=== PATIENT | female | born 1945 | race Caucasian/White ===

== ENCOUNTER → 2016-05-02 | Outpatient (CLI) | payer MEDICARE ==
[2016-05-02 07:25] LABS: Calcium 9.7 mg/dL (8.4-10.2); Total Bilirubin 0.6 mg/dL (0.2-1.3)
[2016-05-02 07:30] LABS: CH 29.4; CHCM 31.5; HCT 44.2 % (34.0-46.0); HDW 2.41; HGB 13.8 gm/dL (11.4-16.0); MCH 29.3 pg (25.0-35.0); MCHC 31.3 g/dL (31.0-37.0); MCV 93.5 fL (80.0-100.0); Mean Platelet Volume 7.1; RBC 4.72 m/uL (3.80-5.40); RDW 14.6 % (11.5-15.5); WBC 6.6 k/uL (3.8-10.6)
[2016-05-02 08:30] LABS: Hemoglobin A1C 6.7 % (4.2-6.1)
--- NOTE | 2016-05-02 08:42 | US ---
EXAMINATION TYPE: US abdomen complete DATE OF EXAM: 05/02/2016 7:32 AM COMPARISON: CT abdomen and pelvis April 02, 2015 CLINICAL HISTORY: R10.12 LUQ Pain, R10.[address]: small bowel obstruction per report in Mar ruary; Spina Bifida; on pain meds; Gallbladder removed; diabetic EXAM MEASUREMENTS: Liver Length: 15.9cm Gallbladder Wall: surgically removed CBD: 0.5 cm Spleen: 10.8 cm Right Kidney: 9.3 x 4.6 x 4.6 cm Left Kidney: 9.2 x 5.1 x 4.9 cm TECHNOLOGIST IMPRESSION: Exam is technically limited due to large body habitus Pancreas: hyperechoic Liver: fatty Gallbladder: surgically absent CBD: wnl Spleen: wnl Right Kidney: wnl Left Kidney: wnl Upper IVC: wnl Abd Aorta: wnl At area of pain at LUQ and left lateral abdomen: bowel is noted. Exam is noted suboptimal secondary to patient's large body habitus. Visualized pancreas shows no worr isome mass or ductal dilatation. Visualized aorta shows no aneurysmal change. IVC is seen near hepati c dome. Liver is heterogeneously hyperechoic in appearance consistent with diffuse fatty infiltration . No intrahepatic ductal dilatation is seen. Gallbladder is surgically absent. No hydronephrosis or c oncerning solid or cystic renal mass is seen in either kidney. Spleen is normal in size. Scanning of left upper quadrant shows pulsating bowel, no worrisome mass or fluid collection is seen on last few images saved. IMPRESSION: No significant new finding is seen to account for patient's symptoms.
== END | disposition home or self-care (01) ==
LOC: RADUSWWP 06:39
PROVIDERS: ATTEND Internal Medicine
DX: R10.12 Left upper quadrant pain (principal); R10.32 Left lower quadrant pain; E11.9 Type 2 diabetes mellitus without complications; E03.9 Hypothyroidism, unspecified; E78.2 Mixed hyperlipidemia
CPT/HCPCS: 76700; 80053; 80061; 83036; 84439; 84443; 85027

== ENCOUNTER → 2017-08-21 | Outpatient (CLI) | payer MEDICARE ==
[2017-08-20 11:00] VITALS: BMI 44.2
[2017-08-21 11:49] VITALS: BP 101/59; PULSE 100; RESP 16
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
== END | disposition home or self-care (01) ==
LOC: PNWHC3 11:05
PROVIDERS: ATTEND Specialist
DX: M43.16 Spondylolisthesis, lumbar region (principal); M51.36 Other intervertebral disc degeneration, lumbar region; M47.816 Spondylosis without myelopathy or radiculopathy, lumbar region; M46.96 Unspecified inflammatory spondylopathy, lumbar region; M53.3 Sacrococcygeal disorders, not elsewhere classified; Q05.7 Lumbar spina bifida without hydrocephalus; R26.2 Difficulty in walking, not elsewhere classified; J45.909 Unspecified asthma, uncomplicated; E11.9 Type 2 diabetes mellitus without complications; I82.409 Acute embolism and thrombosis of unspecified deep veins of unspecified lower extremity; K21.9 Gastro-esophageal reflux disease without esophagitis; M79.9 Soft tissue disorder, unspecified; R29.90 Unspecified symptoms and signs involving the nervous system; E07.9 Disorder of thyroid, unspecified; M19.90 Unspecified osteoarthritis, unspecified site; N28.9 Disorder of kidney and ureter, unspecified; Z91.013 Allergy to seafood; Z88.2 Allergy status to sulfonamides; Z91.041 Radiographic dye allergy status; Z91.040 Latex allergy status; Z79.891 Long term (current) use of opiate analgesic; Z79.899 Other long term (current) drug therapy; Z91.048 Other nonmedicinal substance allergy status; Z88.5 Allergy status to narcotic agent
CPT/HCPCS: 99211

== ENCOUNTER → 2017-09-11 | Outpatient (CLI) | payer MEDICARE ==
--- NOTE | 2017-09-15 08:58 | MM ---
Reason for exam: screening (asymptomatic). Last mammogram was performed 2 years and 8 months ago. History: Patient is postmenopausal and has history of endometrial cancer at age 26. Family history of breast cancer in grandmother at age 55, breast cancer in maternal aunt, and premenopausal breast cancer in maternal aunt at age 45. Benign excisional biopsy of the left breast, 1995. Took hormonal contraceptives for 12 years. Took estrogen for 27 years. Physical Findings: A clinical breast exam by your physician is recommended on an annual basis and results should be correlated with mammographic findings. MG 3D Screening Mammo W/Cad Bilateral CC and MLO view(s) were taken. Technologist: RT Nick (R)(M) Prior study comparison: January 14, 2015, bilateral MG screening mammo w CAD. December 15, 2013, bilateral MG screening mammo w CAD. Finding: There is a typically benign 3 mm equal density (isodense), circumscribed round mass in the upper quadrant, middle position of the right breast. New finding since January 14, 2015 and December 15, 2013. ASSESSMENT: Incomplete: need additional imaging evaluation, BI-RAD 0 RECOMMENDATION: Ultrasound of the right breast. (11-1 o'clock) [facility] will attempt to contact patient to return for ultrasound.
== END | disposition home or self-care (01) ==
LOC: RADMAMWWP 09:34
PROVIDERS: ATTEND Internal Medicine
DX: Z12.31 Encounter for screening mammogram for malignant neoplasm of breast (principal)
CPT/HCPCS: 77063; 77067

== ENCOUNTER → 2017-09-24 | Outpatient (CLI) | payer MEDICARE ==
--- NOTE | 2017-09-25 07:00 | USB ---
Reason for exam: additional evaluation requested from abnormal screening. History: Patient is postmenopausal and has history of endometrial cancer at age 26. Family history of breast cancer in grandmother at age 55, breast cancer in maternal aunt, and premenopausal breast cancer in maternal aunt at age 45. Benign excisional biopsy of the left breast, 1995. Took hormonal contraceptives for 12 years. Took estrogen for 27 years. Physical Findings: Nurse did not find any significant physical abnormalities on exam. US Breast Workup Limited RT Right limited breast ultrasound including focal area of concern, retroareolar and axilla demonstrates a 0.2 x 0.2 x 0.2 cm to small to characterize lesion at 11 o'clock. These results were verbally communicated with the patient and result sheet given to the patient on 09/24/17. ASSESSMENT: Benign, BI-RAD 2 RECOMMENDATION: Return to routine screening mammogram schedule for both breasts.
== END | disposition home or self-care (01) ==
LOC: RADUSWWP 15:29
PROVIDERS: ATTEND Internal Medicine
DX: R92.8 Other abnormal and inconclusive findings on diagnostic imaging of breast (principal)

== ENCOUNTER → 2018-08-26 | Outpatient (CLI) | payer MEDICARE | END | disposition home or self-care (01) | LOC: LABWHC1 10:24 | PROVIDERS: ATTEND Physical Medicine & Rehabilitation | DX: Z51.81 Encounter for therapeutic drug level monitoring (principal); Z79.891 Long term (current) use of opiate analgesic | CPT/HCPCS: 36415; 93005 ==

== ENCOUNTER 2018-09-11 16:37 | Emergency (ER) | payer MEDICARE ==
[2018-09-11 16:55] VITALS: BP 117/84; PULSE 98; RESP 18; TEMP 97.8
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
== END 2018-09-11 18:13 | disposition home or self-care (01) ==
LOC: EC 16:37
DX: S30.0XXA Contusion of lower back and pelvis, initial encounter (principal); Q05.9 Spina bifida, unspecified; J45.909 Unspecified asthma, uncomplicated; E07.9 Disorder of thyroid, unspecified; M10.9 Gout, unspecified; Z85.43 Personal history of malignant neoplasm of ovary; Z79.890 Hormone replacement therapy; Z79.899 Other long term (current) drug therapy; Z91.041 Radiographic dye allergy status; Z91.040 Latex allergy status; Z91.013 Allergy to seafood; Z88.2 Allergy status to sulfonamides; Z88.5 Allergy status to narcotic agent; Z53.29 Procedure and treatment not carried out because of patient's decision for other reasons
CPT/HCPCS: 99283

== ENCOUNTER → 2018-09-11 | Outpatient (CLI) | payer MEDICARE ==
--- NOTE | 2018-09-11 15:12 | MR ---
EXAMINATION TYPE: MR lumbar spine wo con DATE OF EXAM: 09/11/2018 COMPARISON: None HISTORY: Low back pain / Spondylolisthesis TECHNIQUE: Multiplanar, multisequence images of the lumbar spine were acquired. FINDINGS: There is a T2 hyperintense and T1 hypointense epidural fluid collection measuring 15.5 cm i n length extending from the L1-L2 intervertebral disc space to the level of S2. No significant mass e ffect on the distal nerve roots is seen at this time. There is also epidural lipomatosis seen posteri or to this fluid collection. There is also loculation of this fluid collection distally with a second component incompletely measurable given ofhea-mi-iaid measuring at least 8.6 cm. There are probable left sacral nerve root/Tarlov cysts that are seen only on the sagittal images. T1/T2 hyperintense lef t lateral S1 vertebral body hemangioma is seen with similar vertebral body hemangioma of the inferior endplate of L3. There is grade 1 anterolisthesis of L5 on S1 secondary to a right pars interarticularis defect. There is disc uncovering as a result. Multilevel disc desiccation is seen. Vertebral body heights of the lumbar spine are maintained. Multi level anterior osteophytes are present. L1-L2: There is desiccation. No focal herniation. No spinal canal stenosis nor neural foraminal narro wing. L2-L3: There is disc desiccation without focal herniation. No spinal canal stenosis nor neural forami nal narrowing. L3-L4: There is a broad-based disc bulge without spinal canal stenosis nor neural foraminal narrowing . The disc bulges slightly left eccentric. L4-L5: There is a very small central disc herniation superimposed upon a broad-based disc bulge. Face t arthropathy is also seen. There is resultant minimal left neural foraminal narrowing. Spinal canal and right neural foramen are patent. L5-S1: There is a broad-based disc bulge and disc uncovering as well as facet arthropathy resulting i n moderate to severe bilateral neural foraminal narrowing as a disc bulge contacts the exiting L5 ner ve roots. No spinal canal stenosis. Muscular atrophy is seen of the low lumbosacral spine. IMPRESSION: 1. Elongated multiloculated epidural fluid collection seen posteriorly has a component that extends f rom L1-L2 to S2 and another component that is incompletely visualized extending beyond the caudal fie ld-of-view. Seroma or chronic epidural hematoma or possibilities. Correlate with prior surgical inter vention, trauma or pain management procedures. Findings communicated with Gladys, office staff of Dr. Conde as he was unavailable. Finding was communicated at 1509 on September 11, [address] David with r ecommendation to proceed with the ER for neurologic assessment as patient could not be seen in the or dering physician's office until Friday. 2. Grade 1 anterolisthesis of L5 on S1 with disc uncovering secondary to a unilateral pars interartic ularis defect. 3. Very small central disc herniation at L4-L5 without spinal canal stenosis. 4. Degenerative disc disease most focal at L4-L5 and L5-S1 with bilateral moderate to severe neural f oraminal narrowing at L5-S1 and abutment of the exiting L5 nerve roots bilaterally by the disc bulge.
== END ==
LOC: RADMRIMAIN 12:34
PROVIDERS: ATTEND Physical Medicine & Rehabilitation
DX: M48.07 Spinal stenosis, lumbosacral region (principal); M43.17 Spondylolisthesis, lumbosacral region; M51.37 Other intervertebral disc degeneration, lumbosacral region; M51.36 Other intervertebral disc degeneration, lumbar region; M51.27 Other intervertebral disc displacement, lumbosacral region
CPT/HCPCS: 72148

== ENCOUNTER → 2019-04-15 | Outpatient (CLI) | payer MEDICARE ==
[2019-04-16 13:48] LABS: Serum Amphetamine Negative; Serum Barbiturates Negative; Serum Benzodiazepine Negative; Serum Cocaine Negative; Serum Methadone Negative; Serum Opiates Negative; Serum Phencyclidine Negative; Serum Propoxyphene Negative; Serum THC (Cannabis) Negative
== END | disposition home or self-care (01) ==
LOC: LABWHC1 13:49
PROVIDERS: ATTEND Obstetrics & Gynecology Reproductive Endocrinology
DX: M43.16 Spondylolisthesis, lumbar region (principal); M47.26 Other spondylosis with radiculopathy, lumbar region; M51.16 Intervertebral disc disorders with radiculopathy, lumbar region; M85.68 Other cyst of bone, other site; G96.19 Other disorders of meninges, not elsewhere classified; M25.561 Pain in right knee; M25.562 Pain in left knee; M17.0 Bilateral primary osteoarthritis of knee
CPT/HCPCS: 36415; 80307

== ENCOUNTER → 2022-09-19 | Outpatient (CLI) | payer MEDICARE ==
--- NOTE | 2022-09-19 14:35 | P.PAINPG ---
PQRS Measure Charge Sheet Comment: HISTORY OF PRESENT ILLNESS: 77 yr old female as a referral from Dr Avilez presents today w severe and chronic LBP secondary to DDD, spondylosis and facet arthropathy without myelopathy for evaluation. Pt states pain level is provoked at 9/10 in intensity, constant, localized in the lower lumbar spine, sharp in character w shooting pain towards the RLE. Pain is provoked by over activity. Pain is alleviated by use of a wheelchair for ambulatory assistance, PT in 2020, physician guided home stretches daily since 2020, ice, medications ([place], Neurontin), topicals, repositioning and rest. Oswestry axial pain score at . PMH: OA, Asthma, Ovarian CA, DM II, DVT, GERD, OA, CKD Stage III, Hypothyroid Disorder, Gout, PSH: Spinal Bifida, Appendectomy, Section, Cholecystectomy, Hysterectomy, R Wrist ORIF, Tonsillectomy, Sinus Surgery (2014), EGDs, Colonoscopies SH: Negative x3 FH: Mo- Dementia. DM II All: See list Meds: See list REVIEW OF ORGAN SYSTEMS: CONSTITUTIONAL: No fevers or chills. No recent weight loss. NEUROLOGICAL: + numbness and tingling along the distal extremities. No seizure disorders or headaches. MUSCULOSKELETAL: + pain PSYCHIATRIC: Denies current depression or suicidal thoughts. Physical Examinations : Constitutional : Cooperative , not in acute distress . Neurologic : Cranial nerve II to XII intact. No focal neurological deficits. Psychiatric : alert & oriented x 3. Matching mood & appropriate affect. Judgment & insight intact. Musculoskeletal : Cervical Spine Motor strength in the deltoid and biceps: Normal right side. Normal Left side Motor strength biceps and the wrist extensors: Normal right side . Normal left side Motor strength in the triceps muscle: Normal right side. Normal left side Deep tendon reflexes: Normal at the biceps. Normal at Brachioradialis. Normal at triceps Vertebral body tenderness to deep palpation over Cervical facet loading test: positive bilaterally Spurling test: positive bilaterally Neck distraction test: positive bilaterally Konrad sign: positive bilaterally Lumbar spine Motor strength lower extremities ,thigh and legs 5/5 Right side , 5/5 Left side Deep tendon reflexes : Normal Knee Jerk. Normal Ankle Jerk Vertebral body tenderness over Summers Test positive Lumbar facet Loading Test: positive Right / positive Left Range of motion of the lumbar spine Flexion 30 degrees, extension 10 degrees Straight Leg Raise test: Left/ Right positive at degree Jb test: positive right / positive left. Severe tenderness over the Sacroiliac joint on the Right / Left sides Gaenslen test: positive bilaterally Seated flexion test: positive bilaterally. Sacral spine : Severe tenderness over the Sacroiliac joint: right side / left side Range of motion: Flexion of the lumbar spine <60 degrees Range of motion: Extension of the lumbar spine <20 degrees Gaenslen's Test positive Omar's Test positive Jb test: positive right side / left side Thigh Thrust Test Sacral Thrust Test Imaging: Awaiting reports from [facility] Imaging Assessment/ Plan : Lumbar DDD Recommendation of PT x 6 wks re: M51.36. All questions answered. I have spent greater than 30 minutes on patient care today. Dr Franklin was available by phone for the evaluation of this patient. The time was used to review the medical records including relevant urine studies and Prescription history (MAPs), review of the available imaging, evaluation and examination of the patient, coordination of care with the medical staff and if applicable referring physicians, as well as creation of the medical record PQRS Narrative: Smoking Status Never smoker Hx Alcohol Use (MH) No Home Medications: Ambulatory Orders Albuterol Inhaler [Ventolin Inhaler] 1 - 2 puff INHALATION RT-Q6H PRN 06/17/14 Cyclobenzaprine [Flexeril] 10 mg PO TID PRN 06/17/14 Enalapril [Vasotec] 2.5 mg PO DAILY 06/17/14 Gabapentin 600 mg PO DAILY 06/17/14 Levothyroxine Sodium [Levoxyl] 200 mcg PO QAM 06/17/14 Montelukast [Singulair] 10 mg PO HS PRN 06/17/14 Potassium Chloride [Klor-Con 20] 20 meq PO Q2D 06/17/14 allopurinoL [Zyloprim] 300 mg PO DAILY 06/17/14 Budesonide [Pulmicort] 0.5 mg INHALATION RT-BID PRN 04/02/15 Furosemide [Lasix] 20 mg PO Q2D 04/02/15 HYDROcodone/APAP 10-325MG [[place] 10-325] 1 tab PO Q12H PRN 08/20/17 Cholecalciferol (Vitamin D3) [Vitamin D3] 50,000 unit PO WEEKLY 08/21/17 Devils Claw 1 tab PO DAILY 08/21/17 Frankincense 1 tab PO DAILY 08/21/17 Magnesium 400 mg PO DAILY 08/21/17 Radiant Massage 08/21/17 Turmeric Root Extract [Turmeric] 500 mg PO DAILY 08/21/17 Controlled Substance Measures - Controlled Substance Measures Is patient prescribed a controlled substance at discharge?: No
[2022-09-19 14:48] VITALS: BP 144/79; PULSE 81; RESP 16
== END ==
LOC: PNWHC3 13:27
PROVIDERS: ATTEND Specialist
DX: M51.36 Other intervertebral disc degeneration, lumbar region (principal); M47.816 Spondylosis without myelopathy or radiculopathy, lumbar region; M19.90 Unspecified osteoarthritis, unspecified site; J45.909 Unspecified asthma, uncomplicated; E11.22 Type 2 diabetes mellitus with diabetic chronic kidney disease; N18.30 Chronic kidney disease, stage 3 unspecified; K21.9 Gastro-esophageal reflux disease without esophagitis; M10.9 Gout, unspecified; Z85.43 Personal history of malignant neoplasm of ovary; Z86.718 Personal history of other venous thrombosis and embolism; Z79.51 Long term (current) use of inhaled steroids; Z79.890 Hormone replacement therapy; Z88.8 Allergy status to other drugs, medicaments and biological substances; Z91.041 Radiographic dye allergy status; Z88.2 Allergy status to sulfonamides; Z91.040 Latex allergy status; Z88.5 Allergy status to narcotic agent; Z91.030 Bee allergy status; Z91.010 Allergy to peanuts; Z88.7 Allergy status to serum and vaccine; Z88.6 Allergy status to analgesic agent
CPT/HCPCS: 99211

== ENCOUNTER → 2022-10-31 | Outpatient (CLI) | payer MEDICARE ==
--- NOTE | 2022-10-31 13:56 | P.PAINPG ---
PQRS Measure Charge Sheet Comment: HISTORY OF PRESENT ILLNESS: 77 yr old wheelchair bound female presents today w severe and chronic LBP secondary to DDD, spondylosis and facet arthropathy without myelopathy for evaluation. Pt states pain level is provoked at 9/10 in intensity, constant, localized in the lower lumbar spine, sharp in character w shooting pain towards the RLE. Pain is provoked by over activity. Pain is alleviated by use of a wheelchair for ambulatory assistance, visiting home PT/ OT from Sep 2022 til present, physician guided home stretches daily since 2020, ice, medications, topicals, repositioning and rest. Oswestry axial pain score at 28. Interventional procedures include DENIES Medications include [place], Neurontin REVIEW OF ORGAN SYSTEMS: CONSTITUTIONAL: No fevers or chills. No recent weight loss. NEUROLOGICAL: + numbness and tingling along the distal extremities. No seizure disorders or headaches. MUSCULOSKELETAL: + pain PSYCHIATRIC: Denies current depression or suicidal thoughts. Physical Examinations : Constitutional : Cooperative , not in acute distress . Neurologic : Cranial nerve II to XII intact. No focal neurological deficits. Psychiatric : alert & oriented x 3. Matching mood & appropriate affect. Judgment & insight intact. Musculoskeletal : Cervical Spine Motor strength in the deltoid and biceps: Normal right side. Normal Left side Motor strength biceps and the wrist extensors: Normal right side . Normal left side Motor strength in the triceps muscle: Normal right side. Normal left side Deep tendon reflexes: Normal at the biceps. Normal at Brachioradialis. Normal at triceps Vertebral body tenderness to deep palpation over Cervical facet loading test: positive bilaterally Spurling test: positive bilaterally Neck distraction test: positive bilaterally Konrad sign: positive bilaterally Lumbar spine Motor strength lower extremities ,thigh and legs 5/5 Right side , 5/5 Left side Deep tendon reflexes : Normal Knee Jerk. Normal Ankle Jerk Vertebral body tenderness over Summers Test positive Lumbar facet Loading Test: positive Right / positive Left Range of motion of the lumbar spine Flexion 30 degrees, extension 10 degrees Straight Leg Raise test: Left/ Right positive at degree Jb test: positive right / positive left. Severe tenderness over the Sacroiliac joint on the Right / Left sides Gaenslen test: positive bilaterally Seated flexion test: positive bilaterally. Sacral spine : Severe tenderness over the Sacroiliac joint: right side / left side Range of motion: Flexion of the lumbar spine <60 degrees Range of motion: Extension of the lumbar spine <20 degrees Gaenslen's Test positive Omar's Test positive Jb test: positive right side / left side Thigh Thrust Test Sacral Thrust Test Imaging: Awaiting reports from [facility] Imaging Assessment/ Plan : Lumbar DDD Recommendation of TENS unit, use as directed, Dx M54.16 Return to clinic as needed. All questions answered. I have spent greater than 30 minutes on patient care today. Dr Franklin was available by phone for the evaluation of this patient. The time was used to rev iew the medical records including relevant urine studies and Prescription history (MAPs), review of the available imaging, evaluation and examination of the patient, coordination of care with the medical staff and if applicable referring physicians, as well as creation of the medical record PQRS Narrative: Smoking Status Never smoker Hx Alcohol Use (MH) No Home Medications: Ambulatory Orders Gabapentin 600 mg PO DAILY 06/17/14 Levothyroxine Sodium [Levoxyl] 200 mcg PO QAM 06/17/14 allopurinoL [Zyloprim] 300 mg PO DAILY 06/17/14 Furosemide [Lasix] 20 mg PO Q2D 04/02/15 HYDROcodone/APAP 10-325MG [[place] 10-325] 1 tab PO Q12H PRN 08/20/17 Frankincense 1 tab PO DAILY 08/21/17 Radiant Massage 08/21/17 Turmeric Root Extract [Turmeric] 500 mg PO DAILY 08/21/17 predniSONE 10 mg PO DAILY 09/19/22 Controlled Substance Measures - Controlled Substance Measures Is patient prescribed a controlled substance at discharge?: No
[2022-10-31 14:41] VITALS: BP 128/66; PULSE 89; RESP 15; TEMP 98.4
== END ==
LOC: PNWHC3 12:59
PROVIDERS: ATTEND Specialist
DX: M43.16 Spondylolisthesis, lumbar region (principal); M51.16 Intervertebral disc disorders with radiculopathy, lumbar region; M47.817 Spondylosis without myelopathy or radiculopathy, lumbosacral region; Z88.8 Allergy status to other drugs, medicaments and biological substances; Z91.040 Latex allergy status; Z88.5 Allergy status to narcotic agent; Z88.2 Allergy status to sulfonamides; Z91.010 Allergy to peanuts; Z91.013 Allergy to seafood; Z91.041 Radiographic dye allergy status; Z88.7 Allergy status to serum and vaccine
CPT/HCPCS: 99211